=== PATIENT | male | born 1960 | race Caucasian/White ===

== ENCOUNTER 2017-10-24 21:54 | Inpatient (IN) | payer OTHER ==
[~2017-10-24] VITALS: Ht 175.3 cm; Wt 124.7 kg
[2017-10-24] MEDS ORDERED: OMEGA-3 + D SO1 EACH (22:31)
[2017-10-24] MEDS ORDERED: SPIRIVA RESPIMAT4 G1 (22:31)
[2017-10-24] MEDS ORDERED: JANUMET 50-1,01 EACH (22:31)
[2017-10-24] MEDS ORDERED: FENOGLIDE120 MG (22:31)
[2017-10-24] MEDS ORDERED: VASOTEC20 MG (22:31)
[2017-10-24] MEDS ORDERED: SYNTHROID50 MCG (22:32)
[2017-10-24] MEDS ORDERED: ADVAIR 100-501 EACH (22:32)
[2017-10-24] MEDS ORDERED: VOLTAREN100 GM (22:32)
[2017-10-24] MEDS ORDERED: XARELTO1 EACH (22:37)
[2017-10-27] MEDS ORDERED: XOPENEX0.63 MG/3 IH (09:04)
[2017-10-27] MEDS ORDERED: LEVOFLOXACIN750 MG PO (09:04)
== END 2017-10-27 10:12 | disposition home or self-care (01) | DRG 194 ==
LOC: ER 21:54 → SEC-K 10-25 09:18 → MEDI 10-25 09:18
PROC: 3E0F7GC Introduction of Other Therapeutic Substance into Respiratory Tract, Via Natural or Artificial Opening (ICD-10-PCS; principal; 2017-10-25)
DX: J18.9 Pneumonia, unspecified organism (principal); G71.0 Muscular dystrophy; B37.0 Candidal stomatitis; R09.02 Hypoxemia; E11.65 Type 2 diabetes mellitus with hyperglycemia